=== PATIENT | male | born 1960 | race Caucasian/White ===

== ENCOUNTER → 2021-01-30 | Outpatient (CLI) | payer OTHER | LOC: HEART 5 13:22 | DX: R06.02 Shortness of breath (principal) | CPT/HCPCS: 94010 ==

== ENCOUNTER → 2021-02-14 | Outpatient (CLI) | payer OTHER | LOC: SLEEP 14:49 | DX: G47.30 Sleep apnea, unspecified (principal); J30.9 Allergic rhinitis, unspecified; F41.9 Anxiety disorder, unspecified; M19.90 Unspecified osteoarthritis, unspecified site; R07.89 Other chest pain; I10 Essential (primary) hypertension; K58.9 Irritable bowel syndrome, unspecified; N20.0 Calculus of kidney; R06.02 Shortness of breath | CPT/HCPCS: 95810 ==

== ENCOUNTER → 2021-10-08 | Outpatient (CLI) | payer OTHER ==
[2021-10-08 14:35] LABS: HEMOGLOBIN 15.6 gm/dl (14.0-17.5); RED BLOOD COUNT 4.83 M/UL (4.20-5.50); WHITE BLOOD COUNT 9.6 K/UL (4.5-11.0)
[2021-10-08 14:55] LABS: BUN/CREATININE RATIO 16 (0-10)
== END ==
LOC: LAB 14:09
PROVIDERS: Internal Medicine Cardiovascular Disease
DX: I10 Essential (primary) hypertension (principal)
CPT/HCPCS: 36415; 80053; 80061; 84443; 85025